=== PATIENT | female | born 1995 | race Caucasian/White ===

== ENCOUNTER 2017-08-29 21:22 | Emergency (ER) | payer OTHER, BC ==
[2017-08-29 21:27] VITALS: RESP 18; TEMP 97.2
[2017-08-29] MEDS ORDERED: clonazePAM 0.5 MG TAB PO STA (21:45)
[2017-08-29 22:00] LABS: Basophils % (A) 0 %; CH 32.2; Eosinophils # (A) 0.2 k/uL (0-0.7); Eosinophils % (A) 2 %; HCT 36.4 % (34.0-46.0); HDW 2.21; HGB 12.2 gm/dL (11.4-16.0); Luc # (Auto) 0.08; Luc % (Auto) 1; Lymphocytes # (A) 1.2 k/uL (1.0-4.8); Lymphocytes % (A) 17 %; MCH 32.9 pg (25.0-35.0); MCHC 33.6 g/dL (31.0-37.0); Mean Platelet Volume 7.6; Monocytes # (A) 0.5 k/uL (0-1.0); Monocytes % (A) 6 %; Neutrophils # (A) 5.3 k/uL (1.3-7.7); Neutrophils % (A) 73 %; RBC 3.72 m/uL (3.80-5.40); RDW 11.8 % (11.5-15.5); WBC 7.3 k/uL (4.0-11.0); WBC (Perox) 7.65
[2017-08-29] MEDS ORDERED: OXcarbazepine 150 MG TAB PEG/G-TUBE ONE (22:00)
[2017-08-29] MEDS ORDERED: OXcarbazepine 300MG/5ML SUSP 15,000 MG/250 ML BOTTLE PEG/G-TUBE ONE (22:00)
--- NOTE | 2017-08-29 22:00 | ED ---
Seizure HPI - General Chief Complaint: Seizure Stated Complaint: seizure Time Seen by Provider: 08/29/17 21:34 Source: patient, EMS Mode of arrival: EMS Limitations: language barrier, altered mental status, physical limitation - History of Present Illness Initial Comments: patient is a 22-year-old female with a history of cerebral palsy and epilepsy who presents with a chief complaint of seizure. The patient arrived via EMS with her mother. Her mother's her primary physiotherapy aide. The mother states that her and her recently went hunting and the left by daughter with her aunt for respite. They took her home today, and as she came in she began having a seizure. Mother states that the patient had 2 seizures, total last about 6 minutes. The patient was given rectal diazepam from the mother. She was transported to the emergency department by EMS without further seizure activity. Per the mother, the patient missed any doses of her medications which are Klonopin and Trileptal. She has not been having any other complaints suggest an infectious etiology. Mother does state however that when she went from home the patient does not sleep as well. - Related Data Home Medications Medication Instructions Recorded Confirmed Diazepam [Diastat] 10 mg RECTAL ONCE PRN 08/29/17 08/29/17 OXcarbazepine 300MG/5ML SUSP 420 mg PEG/G-TUBE BID 08/29/17 08/29/17 [Trileptal Oral Susp] Prevacid Solutab 15mg 15 mg PEG/G-TUBE HS 08/29/17 08/29/17 Prevacid Solutab 15mg 30 mg PO AC-BRKFST 08/29/17 08/29/17 clonazePAM [Klonopin ODT Wafer] 0.25 mg PEG/G-TUBE BID@0700,1500 08/29/17 clonazePAM [Klonopin ODT Wafer] 0.5 mg PEG/G-TUBE HS 08/29/17 08/29/17 Allergies Allergy/AdvReac Type Severity Reaction Status Date / Time morphine Allergy Rash/Hives Verified 08/29/17 22:11 Review of Systems ROS Statement: Those systems with pertinent positive or pertinent negative responses have been documented in the HPI. ROS Other: All systems not noted in ROS Statement are negative. Constitutional: Denies: fever Respiratory: Denies: cough Gastrointestinal: Denies: nausea, vomiting, diarrhea, constipation Genitourinary: Denies: dysuria Skin: Denies: rash, lesions Past Medical History Additional Past Medical History / Comment(s): cerebal palsy, epilepsy History of Any Multi-Drug Resistant Organisms: None Reported Additional Past Surgical History / Comment(s): muscle biopsies, peg tube Past Psychological History: No Psychological Hx Reported Smoking Status: Never smoker Past Alcohol Use History: None Reported Past Drug Use History: None Reported General Exam Limitations: language barrier, altered mental status, physical limitation General appearance: alert, in no apparent distress Course Vital Signs 08/29/17 21:23 Temperature 97.2 F L Pulse Rate 114 H Respiratory 18 Rate Blood Pressure 122/68 O2 Sat by Pulse 91 L Oximetry Medical Decision Making - Medical Decision Making patient is a 22-year-old female with history of cerebral palsy and epilepsy who presents chief complaint of seizures. As per the mother, the seizure lasted about 6 minutes, she got rectal diazepam and has since returned to baseline. There is no history of medical noncompliance, and no indication of infection. Patient has been out of her home environment for the past few days and has reportedly not slept well. Basic labs, urine, and chest x-ray were ordered and reviewed. Chest x-ray shows no acute process. Urine does not show concern for infection. Labwork is grossly unremarkable. At this time, reviewed the results with the father who was in the room. Patient has been stable in the emergency department. They are instructed to follow with primary care and neurology. At this time, patient is stable for discharge. - Lab Data Result diagrams: 08/29/17 21:48 08/29/17 21:48 Lab Results 08/29/17 08/29/17 08/29/17 Range/Units 21:48 21:48 22:00 WBC 7.3 (4.0-11.0) k/uL RBC 3.72 L (3.80-5.40) m/uL Hgb 12.2 (11.4-16.0) gm/dL Hct 36.4 (34.0-46.0) % MCV 98.0 (80.0-100.0) fL MCH 32.9 (25.0-35.0) pg MCHC 33.6 (31.0-37.0) g/dL RDW 11.8 (11.5-15.5) % Plt Count 201 (150-450) k/uL Neutrophils % 73 % Lymphocytes % 17 % Monocytes % 6 % Eosinophils % 2 % Basophils % 0 % Neutrophils # 5.3 (1.3-7.7) k/uL Lymphocytes # 1.2 (1.0-4.8) k/uL Monocytes # 0.5 (0-1.0) k/uL Eosinophils # 0.2 (0-0.7) k/uL Basophils # 0.0 (0-0.2) k/uL Sodium 137 (137-145) mmol/L Potassium 4.4 (3.5-5.1) mmol/L Chloride 108 H (98-107) mmol/L Carbon Dioxide 21 L (22-30) mmol/L Anion Gap 8 mmol/L BUN 12 (7-17) mg/dL Creatinine 0.37 L (0.52-1.04) mg/dL Est GFR (MDRD) Af Amer >60 (>60 ml/min/1.73 sqM) Est GFR (MDRD) Non-Af >60 (>60 ml/min/1.73 sqM) Glucose 72 L (74-99) mg/dL Calcium 9.5 (8.4-10.2) mg/dL Urine Color Yellow Urine Appearance Turbid H (Clear) Urine pH 7.5 (5.0-8.0) Ur Specific [place] 1.017 (1.001-1.035) Urine Protein Trace H (Negative) Urine Glucose (UA) Negative (Negative) Urine Ketones Negative (Negative) Urine Blood Negative (Negative) Urine Nitrite Negative (Negative) Urine Bilirubin Negative (Negative) Urine Urobilinogen <2.0 (<2.0) mg/dL Ur Leukocyte Esterase Negative (Negative) Urine WBC 2 (0-5) /hpf Ur Squamous Epith Cells 1 (0-4) /hpf Urine Bacteria Many H (None) /hpf Urine Yeast (Budding) Few H (None) /hpf Disposition Clinical Impression: Epileptic seizure Disposition: HOME SELF-CARE Condition: Good Instructions: Recurrent Seizures in Adults (ED) Referrals: Ora Greer MD [Primary Care Provider] - 1-2 days
--- NOTE | 2017-08-29 22:03 | XR ---
EXAMINATION TYPE: XR chest 1V DATE OF EXAM: 08/29/2017 COMPARISON: 12/06/2012 HISTORY: Seizure. Chest pain TECHNIQUE: Single frontal view of the chest is obtained. FINDINGS: There is no heart failure nor confluent pneumonic infiltrate. Costophrenic angles are [place] r. Bony thorax appears intact. IMPRESSION: No active cardiopulmonary disease. No change.
[2017-08-29 22:11] LABS: Anion Gap 8 mmol/L; Blood Urea Nitrogen 12 mg/dL (7-17); Calcium 9.5 mg/dL (8.4-10.2); Carbon Dioxide 21 mmol/L (22-30); Chloride 108 mmol/L (98-107); Glucose 72 mg/dL (74-99); Non-African American GFR(MDRD) >60 (>60 ml/min/1.73 sqM); Potassium 4.4 mmol/L (3.5-5.1); Sodium 137 mmol/L (137-145)
[2017-08-29 22:25] LABS: Appearance,Urine Turbid (Clear); Bacteria,Urine Many /hpf; Bilirubin,Urine Negative (Negative); Glucose,Urine (UA) Negative (Negative); Ketones,Urine Negative (Negative); Leukocyte Esterase,Urine Negative (Negative); Nitrite,Urine Negative (Negative); PH, Urine 7.5 (5.0-8.0); Particle Count 11911; Protein,Urine Trace (Negative); Specific Gravity,Urine 1.017 (1.001-1.035); Squamous Epithelial Cell,Urine 1 /hpf (0-4); UA Billing (MACRO vs. MICRO) MICRO; Urobilinogen,Urine <2.0 mg/dL (<2.0); WBC,Urine 2 /hpf (0-5)
[2017-08-29 23:29] VITALS: BP 105/58; PULSE 75
== END 2017-08-29 23:28 | disposition home or self-care (01) ==
LOC: EC 21:22
DX: G40.909 Epilepsy, unspecified, not intractable, without status epilepticus (principal); Z88.5 Allergy status to narcotic agent; Z79.899 Other long term (current) drug therapy
CPT/HCPCS: 36415; 51701; 71010; 80048; 81001; 85025; 99284

== ENCOUNTER → 2018-09-11 | Outpatient (CLI) | payer OTHER ==
--- NOTE | 2018-09-11 16:11 | XR ---
EXAMINATION TYPE: XR chest 2V DATE OF EXAM: 09/11/2018 COMPARISON: Prior chest x-ray 08/29/2017 HISTORY: Cough TECHNIQUE: Frontal and lateral views of the chest are obtained. FINDINGS: Lung volumes are low. Cardiac mediastinal silhouette, pulmonary vascularity and luis are s table. No evident pneumothorax or pleural effusion. There is bronchial wall thickening present. No de finite airspace disease. IMPRESSION: Expiratory exam. Correlate for bronchitis, reactive airways disease, follow-up as indica michelle
== END ==
LOC: RADXRYALE 12:44
PROVIDERS: ATTEND Internal Medicine
DX: R05 Cough (principal)
CPT/HCPCS: 71046

== ENCOUNTER → 2018-11-06 | Outpatient (CLI) | payer OTHER ==
[2018-11-06 09:01] LABS: HCT 36.5 % (34.0-46.0); HGB 12.2 gm/dL (11.4-16.0); MCH 32.7 pg (25.0-35.0); MCHC 33.5 g/dL (31.0-37.0); MCV 97.8 fL (80.0-100.0); Mean Platelet Volume 7.1; Platelet Count 158 k/uL (150-450); RBC 3.73 m/uL (3.80-5.40); RDW 11.7 % (11.5-15.5); WBC 5.4 k/uL (3.8-10.6)
[2018-11-06 17:59] LABS: Albumin 4.4 g/dL (3.80-4.90); Albumin/Globulin Ratio 1.69 (1.20-2.10); Anion Gap 9.8 mmol/L (4.00-12.00); Calcium 9.6 mg/dL (8.7-10.3); Carbon Dioxide 30.2 mmol/L (21.6-31.8); Globulin 2.6 g/dL (1.6-3.3); Potassium 4.3 mmol/L (3.5-5.5); Total Bilirubin 0.2 mg/dL (0.2-1.2)
== END | disposition home or self-care (01) ==
LOC: EEVIPCON 08:29 → LABWHC1 08:29
PROVIDERS: ATTEND Psychiatry & Neurology Neurology
DX: G80.3 Athetoid cerebral palsy (principal); G40.909 Epilepsy, unspecified, not intractable, without status epilepticus
CPT/HCPCS: 36415; 80053; 80183; 82306; 85027

== ENCOUNTER → 2021-09-01 | Outpatient (CLI) | payer OTHER | END | disposition home or self-care (01) | LOC: LABWHC1 11:30 | PROVIDERS: ATTEND Internal Medicine | DX: Z20.822 Contact with and (suspected) exposure to COVID-19 (principal); R05.9 Cough, unspecified | CPT/HCPCS: U0003; C9803; U0005 ==